=== PATIENT | male | born 1965 | race Caucasian/White ===

== ENCOUNTER 2018-09-26 21:38 | Emergency (ER) | payer SELFPAY ==
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
== END 2018-09-26 23:25 ==
LOC: ERS 21:38
DX: S02.2XXA Fracture of nasal bones, initial encounter for closed fracture (principal); S00.83XA Contusion of other part of head, initial encounter; F10.129 Alcohol abuse with intoxication, unspecified; V49.9XXA Car occupant (driver) (passenger) injured in unspecified traffic accident, initial encounter
CPT/HCPCS: 70450; 70486; 72125

== ENCOUNTER 2020-06-14 23:05 | Inpatient (IN) | payer OTHER, SELFPAY ==
[~2020-06-14 23:05] MED LIST: Iopamidol 370 76% 100 ML VIAL ONE
[2020-06-14] MEDS ORDERED: Boostrix 0.5 ML VIAL ONE (23:13)
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
[2020-06-14 23:38] LABS: #Basophils 0.1 thou/uL (0.0-0.2); #Eosinphils 0.2 thou/uL (0.0-0.7); #Monocytes 0.7 thou/uL (0.11-0.59); #Neutrophils 4.6 thou/uL (1.40-6.50); %Basophils 0.7 % (0.0-1.0); %Eosinophils 2.6 % (0.0-10.0); %Lymphocytes 26.9 % (21.0-51.0); %Monocytes 9.5 % (0.0-10.0); %Neutrophils 60.4 % (42.0-75.0); Hemoglobin 15.3 g/dL (14.0-18.0); Mean Corpuscular HGB CONC 34.7 g/dL (32.0-36.0); Mean Corpuscular Hemoglobin 33.2 pg (27.0-31.0); Mean Corpuscular Volume 95.9 fL (78.0-98.0); Mean Platelet Volume 8.8 fL (7.4-10.4); Platelet Count 215 thou/uL (130-400); Red Blood Cell (RBC) Count 4.59 mill/uL (4.70-6.10); White Blood Cell (WBC) Count 7.6 thou/uL (4.8-10.8)
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
[2020-06-15] LABS: PTT 27.6 sec (22.9-36.1); Prothrombin Time 12.8 sec (12.0-14.7)
[2020-06-15] MEDS ORDERED: Dextrose 50% Abboject 50 ML SYRINGE SLOW IVP PRN
[2020-06-15] MEDS ORDERED: Ondansetron PF 4 MG/2 ML Vial IVP PRN
[2020-06-15] MEDS ORDERED: Dextrose 5% in Water 1,000 ML IV PRN
[2020-06-15] MEDS ORDERED: hydrALAZINE 20 MG/ML VIAL SLOW IVP PRN
[2020-06-15] MEDS ORDERED: Insulin Regular 300 UNITS/3 ML VIAL SC PRN
[2020-06-15 00:02] LABS: ALT (SGPT) 27 U/L (8-55); AST (SGOT) 30 U/L (5-34); Albumin 4.4 g/dL (3.5-5.0); Alkaline Phosphatase 42 U/L (40-110); Anion Gap 16 mmol/L (10-20); BUN (Urea Nitrogen) 14 mg/dL (8.4-25.7); Bilirubin, Total 0.5 mg/dL (0.2-1.2); CK (CPK) 288 U/L (30-200); Calc. Creatinine Clearance 0 mL/min (70-130); Calcium 8.7 mg/dL (7.8-10.44); Carbon Dioxide 20 mmol/L (22-29); Chloride 100 mmol/L (98-107); Estimated GFR-MDRD 75; Globulin 3.2 g/dL (2.4-3.5); Glucose 99 mg/dL (70-105); Potassium 3.6 mmol/L (3.5-5.1); Protein, Total 7.6 g/dL (6.0-8.3); Sodium 132 mmol/L (136-145)
[2020-06-15 00:27] LABS: Magnesium 2.2 mg/dL (1.6-2.6); Phosphorus 3.5 mg/dL (2.3-4.7)
[2020-06-15 00:31] LABS: Alcohol 253 mg/dL (Less than 10); CK (CPK) 285 U/L (30-200)
[2020-06-15 00:34] LABS: Lactic Acid 1.8 mmol/L (0.5-2.2)
[2020-06-15] MEDS ORDERED: Fentanyl 100 MCG/2 ML VIAL ONE (00:35)
[2020-06-15] MEDS ORDERED: Potassium Phosphate 15 MMOL in Sodium Chloride 0.9% 250 ML 250 ML IVPB SCH (01:15)
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
[2020-06-15] MEDS ORDERED: Morphine 4 MG/ML VIAL SLOW IVP PRN (02:27)
[2020-06-15] MEDS: Sodium Chloride 0.9% 1,000 ML IV SCH ×3 (02:31→17:24)
[2020-06-15] MEDS: Morphine 2 MG/ML VIAL SLOW IVP PRN ×3 (02:35→10:49)
[2020-06-15 02:48] VITALS: BMI 27.6
[2020-06-15 04:26] LABS: Medtox Reader # READER 1; THC/Cannabinoid Screen Detected (NotDetected)
[2020-06-15 04:27] LABS: Amphetamine Not Detected (NotDetected); Barbiturates Screen Not Detected (NotDetected); Benzodiazepine Screen Not Detected (NotDetected); Cocaine Metabolite Screen Not Detected (NotDetected); Medtox Control Line Valid? VALID (VALID); Methadone Not Detected (NotDetected); Methamphetamine Not Detected (NotDetected); Opiate Screen Detected (NotDetected); Oxycodone Screen Not Detected (NotDetected); Phencyclidine (PCP) Not Detected (NotDetected); Tricyclic Screen Not Detected (NotDetected)
[2020-06-15] MEDS: Acetaminophen 500 MG TAB PO SCH ×3 (05:33→17:18)
--- NOTE | 2020-06-15 06:23 | PDOC.EVN ---
Event Note - Event Note Event Note: Trauma contacted this morning by radiology for CTA C-spine over read. Reported the study demonstrated at small internal carotid artery dissection on the over read. NSGY was contacted as the patient also has a SDH along with C6 fxs. Advised by NSGY to hold Aspirin for now and NSGY will get back with trauma on the timing of aspirin administration. Lubna Weber, Trauma Surgery
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
[2020-06-15] MEDS: Senokot S 8.6-50 MG TAB PO SCH ×2 (08:43→20:32)
[2020-06-15] MEDS: Multivitamin W/ Minerals 1 TAB PO SCH (08:43)
[2020-06-15] MEDS: Famotidine 20 MG TAB PO SCH ×2 (08:43→20:33)
[2020-06-15] MEDS: Polyethylene Glycol 3350 17 GM Packet PO SCH (08:44)
[2020-06-15] MEDS: Thiamine 100 MG TAB PO SCH (08:44)
[2020-06-15] MEDS: Folic Acid 1 MG TAB PO SCH (08:44)
[2020-06-15 09:34] LABS: Hemoglobin 15.1 g/dL (14.0-18.0); Mean Corpuscular HGB CONC 34.3 g/dL (32.0-36.0); Mean Corpuscular Hemoglobin 33.1 pg (27.0-31.0); Mean Corpuscular Volume 96.4 fL (78.0-98.0); Mean Platelet Volume 8.5 fL (7.4-10.4); Platelet Count 194 thou/uL (130-400); Red Blood Cell (RBC) Count 4.56 mill/uL (4.70-6.10); White Blood Cell (WBC) Count 7.9 thou/uL (4.8-10.8)
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
[2020-06-15] MEDS ORDERED: traMADol HCl 50 MG TAB PO PRN (10:51)
[2020-06-15] MEDS: traMADol HCl 50 MG TAB PO SCH ×3 (11:12→20:33)
[2020-06-15] MEDS: Cyclobenzaprine 10 MG TAB PO PRN (12:29)
[2020-06-15 12:37] LABS: SARS-CoV-2 MS2 Positive; SARS-CoV-2 N Gene Negative; SARS-CoV-2 S Gene Negative; SARS-CoV-2 by NAA Not Detected (NotDetected); SARS-CoV-2 orf1ab Negative
[2020-06-15] MEDS: Oxazepam 10 MG CAP PO SCH ×2 (14:06→21:20)
[2020-06-15] MEDS: Pregabalin 50 MG CAP PO SCH (20:33)
[2020-06-16] MEDS: Acetaminophen 500 MG TAB PO SCH ×3 (00:01→14:38)
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
[2020-06-16] MEDS: traMADol HCl 50 MG TAB PO SCH ×3 (03:07→14:37)
[2020-06-16] MEDS: Oxazepam 10 MG CAP PO SCH ×2 (05:39→14:37)
[2020-06-16] MEDS: Cyclobenzaprine 10 MG TAB PO PRN (05:46)
[2020-06-16 06:19] LABS: #Eosinphils 0.2 thou/uL (0.0-0.7); #Lymphocytes 0.9 thou/uL (1.20-3.40); #Monocytes 0.6 thou/uL (0.11-0.59); #Neutrophils 4.5 thou/uL (1.40-6.50); %Basophils 0.5 % (0.0-1.0); %Eosinophils 3.6 % (0.0-10.0); %Lymphocytes 13.8 % (21.0-51.0); %Monocytes 9.2 % (0.0-10.0); Hemoglobin 14.1 g/dL (14.0-18.0); Mean Corpuscular HGB CONC 32.6 g/dL (32.0-36.0); Mean Corpuscular Hemoglobin 31.8 pg (27.0-31.0); Mean Corpuscular Volume 97.5 fL (78.0-98.0); Platelet Count 173 thou/uL (130-400); RBC Distribution Width 12.2 % (11.5-14.5); Red Blood Cell (RBC) Count 4.44 mill/uL (4.70-6.10); White Blood Cell (WBC) Count 6.2 thou/uL (4.8-10.8)
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
[2020-06-16 06:49] LABS: Anion Gap 11 mmol/L (10-20); BUN (Urea Nitrogen) 12 mg/dL (8.4-25.7); Calc. Creatinine Clearance 130 mL/min (70-130); Calcium 8.3 mg/dL (7.8-10.44); Carbon Dioxide 22 mmol/L (22-29); Chloride 104 mmol/L (98-107); Estimated GFR-MDRD Greater than 90; Glucose 94 mg/dL (70-105); Magnesium 2.2 mg/dL (1.6-2.6); Phosphorus 2.3 mg/dL (2.3-4.7); Potassium 4.1 mmol/L (3.5-5.1); Sodium 133 mmol/L (136-145)
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
[2020-06-16] MEDS: Pregabalin 50 MG CAP PO SCH (10:03)
[2020-06-16] MEDS: Multivitamin W/ Minerals 1 TAB PO SCH (10:05)
[2020-06-16] MEDS: Polyethylene Glycol 3350 17 GM Packet PO SCH (10:05)
[2020-06-16] MEDS: Thiamine 100 MG TAB PO SCH (10:05)
[2020-06-16] MEDS: Folic Acid 1 MG TAB PO SCH (10:05)
[2020-06-16] MEDS: Senokot S 8.6-50 MG TAB PO SCH (10:05)
--- NOTE | 2020-06-16 11:29 | RAD ---
LEFT HAND 3 VIEWS: Date: 06/16/2020 HISTORY: Pain and swelling left thumb. FINDINGS: Mild DJD at the first carpometacarpal. There is mild DJD at the first MCP joint. There is a sesamoid seen on the radial side of the first MCP joint. There is another osseous fragment which may represent a chip fracture from the base of the proximal phalanx at the MCP joint. This fernando ears corticated and does not appear to represent an acute injury. The IP joint is unremarkable. No dislocation. No evidence of acute fracture. IMPRESSION: Question of a chip fragment from the base of the proximal phalanx at the MCP joint. Evidence of corti cation suggests this may be an old injury. POS: LILA
[2020-06-16 17:35] VITALS: BP 154/91; TEMP 97.4
== END 2020-06-16 17:48 | disposition home or self-care (01) | DRG 82 ==
LOC: ERS 23:05 → CCU 06-15 01:54 → SURG A 06-15 11:46
PROVIDERS: ADMIT Surgery; ATTEND Surgery
DX: S06.5X9A Traumatic subdural hemorrhage with loss of consciousness of unspecified duration, initial encounter (principal); I77.71 Dissection of carotid artery; S12.500A Unspecified displaced fracture of sixth cervical vertebra, initial encounter for closed fracture; E87.1 Hypo-osmolality and hyponatremia; V29.9XXA Motorcycle rider (driver) (passenger) injured in unspecified traffic accident, initial encounter; F10.129 Alcohol abuse with intoxication, unspecified; Z20.828 Contact with and (suspected) exposure to other viral communicable diseases
CPT/HCPCS: 36415; 36416; 70450; 70498; 71045; 71260; 72125; 72170; 74177; 80048; 80053; 80306; 80307; 82550; 83605; 83735; 84100; 85025; 85027; 85610; 85730; 87635; 90715; J0690; J2270; J3010; J7050; Q9967; U0003

== ENCOUNTER 2020-10-18 07:35 | Outpatient (CLI) | payer OTHER ==
--- NOTE | 2020-10-18 08:49 | CT ---
CTA OF THE NECK WITH IV CONTRAST AND 3-D REFORMATTED IMAGING. INDICATION: 54-year-old male with history of subdural hematoma and left ICA dissection. COMPARISON: CTA of the neck dated June 15, 2020 FINDINGS: Right CCA: Patent. Right ICA: There is mild atherosclerotic calcific patient involving the proximal right ICA without s ignificant luminal caliber narrowing. Stable to the prior. Right Subclavian: Patent. Right Vertebral Artery: Patent. Left CCA: There is mild luminal caliber narrowing involving the distal left common carotid artery, j ust prior to the left carotid bulb, inducing approximately 15% luminal caliber narrowing. Left ICA: The focal dissection involving the mid left internal carotid artery now demonstrates some interval partial internal thrombosis. Portions of the small dissection flap remain patent (approximately 60% of the dissection remains patent). The true lumen narrowing is stable. The remaini ng course of the left ICA is patent. Left Subclavian: Patent. Left Vertebral Artery: Diminutive but patent Aerodigestive tract: Clear. Parotids/Submandibular/Thyroid glands: Normal. Lymph nodes: No pathologically enlarged lymph nodes. Lung Apices: Clear. Bones: There is been interval progressive healing without evidence of displacement involving the lef t C6 facet and left transverse process fractures. Mild cervical spondylosis. Incidentals: None. IMPRESSION: 1. Some partial internal thrombosis of the small dissection flap involving the mid left internal hauser tid artery. Mild luminal caliber narrowing of the mid left ICA is stable. 2. Progressive healing without evidence of displacement involving the left C7 facet and left C6 trans verse process fractures.
[2020-10-18] MEDS ORDERED: Iopamidol-370 76% 500 ML 1 ML ONE (14:03)
== END 2020-10-18 07:36 | disposition home or self-care (01) ==
LOC: BICCT 07:35
PROVIDERS: ATTEND Neurological Surgery
DX: S06.5X9A Traumatic subdural hemorrhage with loss of consciousness of unspecified duration, initial encounter (principal); I65.22 Occlusion and stenosis of left carotid artery; I77.71 Dissection of carotid artery
CPT/HCPCS: 70498

== ENCOUNTER 2024-07-27 14:46 | Inpatient (IN) | payer OTHER ==
[2024-07-27 15:03] LABS: #Basophils 0.05 10x3/uL (0.0-0.2); %Basophils 0.5 % (0.0-1.0); %Eosinophils 1.6 % (0.0-10.0); %Lymphocytes 17.2 % (21.0-51.0); %Monocytes 7.2 % (0.0-10.0); %Neutrophils 73.2 % (42.0-75.0); Hematocrit 47.2 % (42.0-52.0); Hemoglobin 16.4 g/dL (14.0-18.0); Mean Corpuscular HGB CONC 34.7 g/dL (32.0-36.0); Mean Corpuscular Hemoglobin 31.2 pg (27.0-31.0); Mean Corpuscular Volume 89.9 fL (78.0-98.0); Mean Platelet Volume 10.5 fL (7.4-10.4); Platelet Count 264 10x3/uL (130-400); RBC Distribution Width 13.4 % (11.5-14.5); Red Blood Cell (RBC) Count 5.25 mill/uL (4.70-6.10)
[2024-07-27] MEDS ORDERED: Morphine 4 MG/ML VIAL ONE ×2 (15:03→16:40)
[2024-07-27 15:17] LABS: ALT (SGPT) 34 U/L (8-55); AST (SGOT) 26 U/L (5-34); Albumin 4.3 g/dL (3.5-5.0); Alkaline Phosphatase 68 U/L (40-110); Anion Gap 20 mmol/L (10-20); BUN (Urea Nitrogen) 19 mg/dL (8.4-25.7); Bilirubin, Total 0.7 mg/dL (0.2-1.2); Calc. Creatinine Clearance 0 mL/min (70-130); Calcium 9.9 mg/dL (7.8-10.44); Carbon Dioxide 18 mmol/L (22-29); Chloride 105 mmol/L (98-107); Estimated GFR 64; Globulin 3.9 g/dL (2.4-3.5); Glucose 114 mg/dL (70-105); Potassium 4.3 mmol/L (3.5-5.1); Protein, Total 8.2 g/dL (6.0-8.3); Sodium 139 mmol/L (136-145)
[2024-07-27 15:19] LABS: INR-International Normal Ratio 1.2; Prothrombin Time 14.8 sec (12.0-14.7)
[2024-07-27 15:22] LABS: Troponin I 0.037 ng/mL (< 0.028)
[2024-07-27 15:31] LABS: PTT 120.6 sec (22.9-36.1)
[2024-07-27] MEDS ORDERED: TICAGRELOR 90 MG TABLET ONE (15:59)
[2024-07-27] MEDS ORDERED: Clopidogrel Bisulfate 300 MG TAB ONE (16:23)
[2024-07-27] MEDS: Sodium Chloride 0.9% 1,000 ML IV SCH (17:11)
[2024-07-27] MEDS ORDERED: Ondansetron PF 4 MG/2 ML Vial IVP PRN (17:12)
[2024-07-27] MEDS ORDERED: Nitroglycerin 50 MG/250 ML BOT 250 ML IVPB SCH (17:45)
[2024-07-27] MEDS: Acetaminophen 325 MG TAB PO PRN (18:46)
[2024-07-27] MEDS: Famotidine 20 MG TAB PO SCH (20:36)
[2024-07-27 21:09] VITALS: BMI 28.3
[2024-07-27] MEDS: Morphine 4 MG/ML VIAL SLOW IVP PRN (22:22)
[2024-07-28 01:38] LABS: Troponin I 35.564 ng/mL (< 0.028)
[2024-07-28 03:26] LABS: #Basophils Less than 0.03 10x3/uL (0.0-0.2); %Basophils 0.3 % (0.0-1.0); %Lymphocytes 21.9 % (21.0-51.0); %Monocytes 9.2 % (0.0-10.0); %Neutrophils 65.5 % (42.0-75.0); Hematocrit 38.6 % (42.0-52.0); Hemoglobin 13.4 g/dL (14.0-18.0); Mean Corpuscular HGB CONC 34.7 g/dL (32.0-36.0); Mean Corpuscular Volume 89.4 fL (78.0-98.0); Mean Platelet Volume 10.5 fL (7.4-10.4); Platelet Count 217 10x3/uL (130-400); RBC Distribution Width 13.5 % (11.5-14.5); Red Blood Cell (RBC) Count 4.32 mill/uL (4.70-6.10)
[2024-07-28 04:03] LABS: Troponin I 41.214 ng/mL (< 0.028)
[2024-07-28 04:15] LABS: ALT (SGPT) 41 U/L (8-55); AST (SGOT) 123 U/L (5-34); Albumin 3.4 g/dL (3.5-5.0); Alkaline Phosphatase 53 U/L (40-110); Anion Gap 12 mmol/L (10-20); BUN (Urea Nitrogen) 12 mg/dL (8.4-25.7); Bilirubin, Total 0.6 mg/dL (0.2-1.2); Calc. Creatinine Clearance 121 mL/min (70-130); Calcium 8.6 mg/dL (7.8-10.44); Carbon Dioxide 21 mmol/L (22-29); Chloride 105 mmol/L (98-107); Estimated GFR 101; Glucose 97 mg/dL (70-105); Potassium 3.7 mmol/L (3.5-5.1); Protein, Total 6.4 g/dL (6.0-8.3); Sodium 134 mmol/L (136-145)
[2024-07-28] MEDS: Aspirin Chewable 81 MG TAB PO SCH (08:03)
[2024-07-28] MEDS: Clopidogrel Bisulfate 75 MG TAB PO SCH (08:03)
[2024-07-28 10:48] LABS: Critical Call Chem Troponin I RESULT DECREASING; Troponin I 23.167 ng/mL (< 0.028)
[2024-07-28 12:32] VITALS: BMI 28.3
[2024-07-28] MEDS: Atorvastatin Calcium 40 MG TAB PO SCH (20:17)
[2024-07-29 06:05] LABS: Hemoglobin A1c 5.5 % (4.0-6.0)
[2024-07-29 06:06] LABS: Anion Gap 12 mmol/L (10-20); BUN (Urea Nitrogen) 11 mg/dL (8.4-25.7); Calc. Creatinine Clearance 105 mL/min (70-130); Calcium 9.3 mg/dL (7.8-10.44); Carbon Dioxide 25 mmol/L (22-29); Cardiac Risk 4.9 (Less than 4.5); Chloride 105 mmol/L (98-107); Cholesterol 192 mg/dl (< 200 Desired); Estimated GFR 86; Glucose 102 mg/dL (70-105); HDL Cholesterol 39 mg/dL (>60 Neg Risk); LDL Cholesterol, Calculated 124 mg/dL; Potassium 4.2 mmol/L (3.5-5.1); Sodium 138 mmol/L (136-145); Triglycerides 147 mg/dL (Less than 150)
[2024-07-29] MEDS: Enoxaparin 40 MG (0.4 mL) SYRINGE SC SCH (08:44)
[2024-07-29] MEDS: Lisinopril 10 MG TAB PO SCH ×2 (09:55→09:59)
[2024-07-29] MEDS ORDERED: Communication Order-Pharmacy FS SCH (13:45)
[2024-07-30] MEDS: Sodium Chloride 0.9% 1,000 ML IV SCH ×2 (05:44→09:30)
[2024-07-30 06:09] LABS: Anion Gap 12 mmol/L (10-20); BUN (Urea Nitrogen) 13 mg/dL (8.4-25.7); Calc. Creatinine Clearance 112 mL/min (70-130); Calcium 9.3 mg/dL (7.8-10.44); Carbon Dioxide 21 mmol/L (22-29); Chloride 107 mmol/L (98-107); Estimated GFR 93; Glucose 109 mg/dL (70-105); Potassium 4.1 mmol/L (3.5-5.1); Sodium 136 mmol/L (136-145)
[2024-07-30] MEDS ORDERED: Midazolam HCl 2 mg/2 ml Vial ONE (07:15)
[2024-07-30] MEDS ORDERED: fentaNYL 50 mcg/mL 1 mL Vial ONE (07:15)
[2024-07-30] MEDS ORDERED: Heparin 10,000 UNITS/ 10 ML VIAL ONE (07:15)
[2024-07-30] MEDS ORDERED: Adenosine 6 mg (2 mL) VIAL ONE (07:15)
[2024-07-30] MEDS ORDERED: Nitroglycerin 50 MG/250 ML BOT 250 ML ONE (07:16)
[2024-07-30] MEDS ORDERED: PHENYLEPHRINE-NS 100 MCG/ML 10 ML SYRINGE ONE (08:33)
[2024-07-30] MEDS ORDERED: Clopidogrel Bisulfate 300 MG TAB ONE (08:54)
[2024-07-31 05:24] LABS: #Basophils 0.05 10x3/uL (0.0-0.2); %Basophils 0.7 % (0.0-1.0); %Eosinophils 4.2 % (0.0-10.0); %Lymphocytes 21.7 % (21.0-51.0); %Monocytes 9.1 % (0.0-10.0); Hematocrit 42.3 % (42.0-52.0); Hemoglobin 14.5 g/dL (14.0-18.0); Mean Corpuscular HGB CONC 34.3 g/dL (32.0-36.0); Mean Corpuscular Volume 90.6 fL (78.0-98.0); Mean Platelet Volume 10.6 fL (7.4-10.4); Platelet Count 244 10x3/uL (130-400); RBC Distribution Width 13.5 % (11.5-14.5); Red Blood Cell (RBC) Count 4.67 mill/uL (4.70-6.10)
[2024-07-31 05:40] LABS: ALT (SGPT) 34 U/L (8-55); AST (SGOT) 26 U/L (5-34); Albumin 3.8 g/dL (3.5-5.0); Alkaline Phosphatase 58 U/L (40-110); Anion Gap 12 mmol/L (10-20); BUN (Urea Nitrogen) 11 mg/dL (8.4-25.7); Bilirubin, Total 0.6 mg/dL (0.2-1.2); Calc. Creatinine Clearance 94 mL/min (70-130); Calcium 9.4 mg/dL (7.8-10.44); Carbon Dioxide 22 mmol/L (22-29); Chloride 105 mmol/L (98-107); Estimated GFR 79; Globulin 3.2 g/dL (2.4-3.5); Glucose 104 mg/dL (70-105); Potassium 4.2 mmol/L (3.5-5.1); Sodium 135 mmol/L (136-145)
[2024-07-31 07:22] VITALS: TEMP 98.2
[2024-07-31 08:23] VITALS: BP 135/81
== END 2024-07-31 13:51 | disposition home or self-care (01) | DRG 324 ==
LOC: ERS 14:46 → CCL 14:56 → CCU 16:48 → OBS 07-28 21:37
PROVIDERS: ADMIT Internal Medicine; ATTEND Hospitalist
PROC: 4A023N7 Measurement of Cardiac Sampling and Pressure, Left Heart, Percutaneous Approach (ICD-10-PCS; principal; 2024-07-27)
PROC: 027034Z Dilation of Coronary Artery, One Artery with Drug-eluting Intraluminal Device, Percutaneous Approach (ICD-10-PCS; 2024-07-27)
PROC: 02F03ZZ Fragmentation in Coronary Artery, One Artery, Percutaneous Approach (ICD-10-PCS; 2024-07-27)
PROC: B2151ZZ Fluoroscopy of Left Heart using Low Osmolar Contrast (ICD-10-PCS; 2024-07-27)
PROC: B2111ZZ Fluoroscopy of Multiple Coronary Arteries using Low Osmolar Contrast (ICD-10-PCS; 2024-07-27)
PROC: B240ZZ3 Ultrasonography of Single Coronary Artery, Intravascular (ICD-10-PCS; 2024-07-27)
PROC: 027034Z Dilation of Coronary Artery, One Artery with Drug-eluting Intraluminal Device, Percutaneous Approach (ICD-10-PCS; 2024-07-30)
DX: I21.3 ST elevation (STEMI) myocardial infarction of unspecified site (principal); I50.22 Chronic systolic (congestive) heart failure; I25.119 Atherosclerotic heart disease of native coronary artery with unspecified angina pectoris; I11.0 Hypertensive heart disease with heart failure; D64.9 Anemia, unspecified; R73.9 Hyperglycemia, unspecified; Z98.890 Other specified postprocedural states; Z79.82 Long term (current) use of aspirin; Z79.899 Other long term (current) drug therapy
CPT/HCPCS: 36415; 36416; 71045; 80048; 80053; 80061; 83036; 84484; 85025; 85347; 85610; 85730; 92928; 92941; 92972; 92978; 93005; 93010; 93306; 93454; 93458; 93798; 97139; 99152; 99153; C1725; C1753; C1760; C1761; C1769; C1874; C1876; C1887; C1894; C9600; C9606; J0153; J1644; J1650; J2250; J2272; J3010; J7030; Q9967